=== PATIENT | male | born 1995 | race African-American/Black ===

== ENCOUNTER 2020-03-18 02:42 | Emergency (ER) | payer MEDICAID, SELFPAY ==
[2020-03-18 02:44] VITALS: BP 114/59; PULSE 73; RESP 16; TEMP 36.4; O2SAT 100
--- NOTE | 2020-03-18 03:05 | ED.EAR ---
HPI - Ear Problem General Chief complaint: Ear Stated complaint: left ear pain, nauseated, dizzy Time Seen by Provider: 03/18/20 02:44 History of Present Illness HPI Narrative: Patient is a 24-year-old male who presents the ER with left ear pain. Ongoing for last couple days. Associated with dizziness and nausea. Has occasional muffled hearing. Reports mild sinus congestion. No fevers or chills or sweats. Related Data Allergies Allergy/AdvReac Type Severity Reaction Status Date / Time No Known Allergies Allergy Verified 03/18/20 02:44 Review of Systems Constitutional: Constitutional: Denies chills, Denies fever(s) and Denies weakness ENT: Reports vertigo, Reports nasal congestion and Denies sore throat Respiratory: Respiratory: Denies cough and Denies dyspnea PMFSH Past Medical History Medical History (Updated 03/18/20 @ 03:10 by Alberto Santiago MD) Asthma Surgical History Surgical History (Updated 03/18/20 @ 03:09 by Alberto Santiago MD) No pertinent past surgical history Exam Narrative: Exam Narrative: GENERAL: Well-appearing, well-nourished, and in no acute distress. HEAD: Normocephalic, atraumatic. ENT: Mucous membranes moist. TMs normal bilaterally without evidence of infection. Ear canals free of debris. NECK: Supple. NEURO: Alert and oriented x3. PSYCH: Normal mood and affect. Course Course Emergency Course: Suspect middle ear is not draining properly. Will give meclizine and patient has Zyrtec at home. Vital Signs Vital signs: Vital Signs Temperature 97.5 F L 03/18/20 02:44 Pulse Rate 73 03/18/20 02:44 Respiratory Rate 16 03/18/20 02:44 Blood Pressure 114/59 L 03/18/20 02:44 Pulse Oximetry 100 03/18/20 02:44 Temperature 97.5 F L 03/18/20 02:44 Pulse Rate 73 03/18/20 02:44 Respiratory Rate 16 03/18/20 02:44 Blood Pressure 114/59 L 03/18/20 02:44 Pulse Oximetry 100 03/18/20 02:44 Medical Decision Making Vital Signs Vital Signs: Vital Signs Temperature 97.5 F L 03/18/20 02:44 Pulse Rate 73 03/18/20 02:44 Respiratory Rate 16 03/18/20 02:44 Blood Pressure 114/59 L 03/18/20 02:44 Pulse Oximetry 100 03/18/20 02:44 Temperature 97.5 F L 03/18/20 02:44 Pulse Rate 73 03/18/20 02:44 Respiratory Rate 16 03/18/20 02:44 Blood Pressure 114/59 L 03/18/20 02:44 Pulse Oximetry 100 03/18/20 02:44 Discharge Plan Discharge Clinical Impression: Vertigo Patient Disposition: Home, Self-Care Condition: Stable Instructions: Vertigo (ED) Additional Instructions: Return the ER if you have chest pain or shortness of breath, you cannot keep down food or water, you have worsening pain, or you have additional concerns. Prescriptions: New meclizine 25 mg tablet 25 mg PO TID PRN (Reason: dizziness) Qty: 10 RF: 0 Follow-up/Referrals: Enid Acosta DO [Physician] - 1 Week PHYSICIAN,GYNECOLOGIST [Primary Care Provider] -
[2020-03-18] MEDS: MECLIZINE HCL 25 MG TABLET PO (03:21)
== END 2020-03-18 03:22 | disposition home or self-care (01) ==
PROVIDERS: Emergency Provider Emergency Medicine
DX: R42 Dizziness and giddiness (principal); J45.909 Unspecified asthma, uncomplicated
CPT/HCPCS: 99283; A9270

== ENCOUNTER 2023-05-05 16:18 | Emergency (ER) | payer OTHER, SELFPAY ==
[2023-05-05 16:24] VITALS: BP 128/59; PULSE 101; RESP 16; TEMP 36.8; O2SAT 100
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
--- NOTE | 2023-05-05 19:10 | PC.NURSE ---
pt refusing to give urine sample or obtain blood work. pt educated on the reasoning of why we need blood and urine to medically clear pt so crisis can evaluate pt. pt still refusing. LALO Rosado made aware. orders for medications placed. Security and multiple RN's at bedside. pt then agreed to give urine and blood samples. no medications required.
[2023-05-05 19:30] LABS: Basophils Absolute Auto 0.1 K/mm3 (0.0-0.1); Basophils Percent Auto 0.6 % (0.2-1.2); Eosinophils Percent Auto 0.3 % (0-4.4); Hematocrit 47.7 % (42.0-52.0); Hemoglobin 15.8 g/dL (14.0-18.0); Immature Granulocyte Absolute 0.02 K/mm3 (0.00-0.031); Immature Granulocyte Percent A 0.2 % (0-0.5); Lymphocytes Absolute Auto 2.19 K/mm3 (0.9-3.2); Lymphocytes Percent Auto 23.6 % (18.3-44.2); Mean Corpuscular HGB Conc 33.1 g/dl (32-36); Mean Corpuscular Hemoglobin 28.7 pg (26-34); Mean Corpuscular Volume 86.7 fl (80-100); Mean Platelet Volume 12.5 fl (7.4-10.4); Neutrophils Percent Auto 64.3 % (45.5-73.1); Platelet Count Result 186 k/mm3 (150-375); Red Cell Distribution Width 12.5 % (11.5-14.5); White Blood Count 9.3 K/mm3 (4.5-10.0)
[2023-05-05 19:40] LABS: Alanine Aminotransferase 26 U/L (6-50); Albumin Level 5.3 g/dL (3.5-5.1); Alkaline Phosphatase 100 U/L (38-126); Anion Gap 11 mmol/L (8-16); Aspartate Amino Transferase 46 U/L (17-59); Bilirubin,Total 0.9 mg/dL (0.2-1.3); Blood Urea Nitrogen 12 mg/dL (9-20); Calcium 10.1 mg/dL (8.4-10.2); Carbon Dioxide 25 mmol/L (22-30); Chloride 99 mmol/L (98-107); Estimated CRCL calculation 82 ml/min; Estimated Glomerular Filt Rate > 60; Ethanol < 10 mg/dL (<10); Glucose 110 mg/dL (65-110); Potassium 3.5 mmol/L (3.4-5.0); Sodium 135 mmol/L (137-145)
[2023-05-05 19:45] LABS: Appearance Urine Clear (Clear); Bacteria Urine None Seen /hpf; Bilirubin Urine 1+ (Negative); Blood Urine Negative (Negative); Color Urine Dark Yellow (Yellow); Glucose Urine UA Negative (Negative); Hyaline Casts Urine Present /lpf; Ketones Urine 1+ mg/dL (Negative); Leukocyte Esterase Ur Trace LEU/UL (Negative); Nitrate Urine Negative (Negative); Protein Urine 2+ mg/dL (Negative); RBC Urine 0-2 /hpf (0-2); Specific Grav Ur 1.038 (1.001-1.035); Squamous Epithelial Cell Urine None seen /hpf (Few); WBC Urine 0-5 /hpf
[2023-05-05 19:46] LABS: Add Urine Microscopic? YES
[2023-05-05 19:49] LABS: Amphetamine Screen Urine Negative (Negative); Barbiturate Screen Urine Negative (Negative); Benzodiazepines Screen Urine Negative (Negative); Cannabinoid Screen Urine Positive (Negative); Cocaine Screen Urine Negative (Negative); Methadone Screen Urine Negative (Negative); Opiate Screen Urine Negative (Negative); Phencyclidine Screen Urine Negative (Negative)
[2023-05-05 20:10] LABS: Influenza A QL RT-PCR Negative (Negative); Influenza B QL RT-PCR Negative (Negative); SARS-CoV-2 RNA PCR Negative (Negative)
--- NOTE | 2023-05-05 20:50 | PC.NURSE ---
called crisis for evaluation of pt. no answer. left voicemail.
--- NOTE | 2023-05-05 23:50 | PC.NURSE ---
Dr. Rosado made decision to not discharge pt with safety plan and to involuntarily admit him to in-pt treatment. Dr. Rosado has explained this to the pt. This RN spoke with bridge worker apprentice, she stated that she had faxed his paperwork out to multiple facilities, all have denied the pt except for [facility] and [facility] which we are still waiting to hear back from. Pt is still denying SI/HI. Pt in room with sitter at bedside.
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
[2023-05-06 12:46] VITALS: BP 141/74; PULSE 74; RESP 18; O2SAT 100
== END 2023-05-06 12:48 ==
PROVIDERS: Student in an Organized Health Care Education/Training Program; Emergency Provider Preventive Medicine Aerospace Medicine; PCP Internal Medicine
DX: Z04.6 Encounter for general psychiatric examination, requested by authority (principal); Z20.822 Contact with and (suspected) exposure to COVID-19
CPT/HCPCS: 36415; 80053; 80307; 81001; 84443; 85025; 87636; 99285